=== PATIENT | female | born 1950 | race Caucasian/White ===

== ENCOUNTER 2021-05-08 09:39 | Emergency (ER) | payer MEDICARE, OTHER ==
[~2021-05-08] VITALS: Ht 160 cm; Wt 84.3 kg
[2021-05-08] MEDS ORDERED: RT-ALBUTEROL HFA 8.5 GM INHALER IH PRN (10:00)
[2021-05-08] MEDS ORDERED: NS IV 1000 ML 1,000 ML IV SCH (10:00)
[2021-05-08] MEDS ORDERED: NS IV 1000 ML 1,000 ML ONE (10:00)
--- NOTE | 2021-05-08 10:06 | ED General ---
General Chief Complaint: Respiratory Problems Stated Complaint: SOB; SORE THROAT Source of Information: Patient History of Present Illness Date Seen by Provider: May 08, 2021 Time Seen by Provider: 09:41 Initial Comments 70 yo female presenting with complaint of cough, shortness of breath and sore throat since yesterday. She has had a mild cough at night for last few days but everything got much worse yesterday. She denies fever, chills, nausea, vomiting, diarrhea, chest pain, headache, painful urination. She has not taken anything for her symptoms. She was feeling more short of breath this morning and her son, a gluer machine setup operator, evaluated her and recommended she come to ED. Associated Systoms: No Chest Pain; Cough; No Diaphoresis, No Fever/Chills, No Headaches, No Loss of Appetite, No Malaise, No Nausea/Vomiting, No Rash, No Seizure; Shortness of Air; No Syncope, No Weakness Allergies and Home Medications Allergies Coded Allergies: codeine (Verified Allergy, Unknown, 05/08/21) poison haresh extract (Verified Allergy, Unknown, 05/08/21) poison oak extract (Verified Allergy, Unknown, 05/08/21) poison sumac extract (Verified Allergy, Unknown, 05/08/21) Home Medications Prednisone 20 Mg Tab, 40 MG PO DAILY Prescribed by: MAHOGANY FRAGA on 05/08/21 1226 Patient Home Medication List Home Medication List Reviewed: Yes Review of Systems Review of Systems Constitutional: see HPI EENTM: nose congestion Respiratory: see HPI, cough Cardiovascular: No chest pain Gastrointestinal: no symptoms reported Genitourinary: no symptoms reported Musculoskeletal: no symptoms reported Skin: No rash Psychiatric/Neurological: No Symptoms Reported Physical Exam Vital Signs Vital Signs - First Documented 05/08/21 09:45 Temp 36.9 Pulse 94 Resp 23 B/P (MAP) 156/89 (111) Pulse Ox 99 O2 Delivery Room Air Capillary Refill : Height, Weight, BMI Height: '" Weight: lbs. oz. kg; BMI Method: General Appearance: WD/WN, Mild Distress (reports feeling short of breath) HEENT: PERRL/EOMI, Pharyngeal Erythema; No Tonsillar Exudate Neck: Full Range of Motion, Normal Inspection, Non Tender, Supple Respiratory: Chest Non Tender, No Accessory Muscle Use, No Respiratory Distress, Rhonci Cardiovascular: Regular Rate, Rhythm, Normal Peripheral Pulses Gastrointestinal: Normal Bowel Sounds, No Pulsatile Mass, Non Tender, Soft Rectal: Deferred Extremity: Normal Capillary Refill, Normal Inspection, No Pedal Edema Neurologic/Psychiatric: Alert, Oriented x3, No Motor/Sensory Deficits, Normal Mood/Affect, senior linux unix engineer II-XII Norm as Tested Skin: Normal Color, Warm/Dry Focused Exam Lactate Level 05/08/21 10:05: Lactic Acid Level 1.55 Lactic Acid Level Laboratory Tests Test 05/08/21 10:05 Lactic Acid Level 1.55 MMOL/L (0.50-2.00) Progress/Results/Core Measures Suspected Sepsis SIRS Temperature: Pulse: Respiratory Rate: Laboratory Tests 05/08/21 10:05: White Blood Count 6.4 Blood Pressure / Mean: 05/08/21 10:05: Lactic Acid Level 1.55 Laboratory Tests 05/08/21 10:05: Creatinine 0.85, INR Comment 0.9, Platelet Count 219, Total Bilirubin 0.3 Results/Orders Lab Results Laboratory Tests Test 05/08/21 10:05 05/08/21 10:15 Range/Units White Blood Count 6.4 4.3-11.0 10^3/uL Red Blood Count 4.27 3.80-5.11 10^6/uL Hemoglobin 12.4 11.5-16.0 g/dL Hematocrit 38 35-52 % Mean Corpuscular Volume 88 80-99 fL Mean Corpuscular Hemoglobin 29 25-34 pg Mean Corpuscular Hemoglobin Concent 33 32-36 g/dL Red Cell Distribution Width 13.1 10.0-14.5 % Platelet Count 219 130-400 10^3/uL Mean Platelet Volume 9.8 9.0-12.2 fL Immature Granulocyte % (Auto) 0 % Neutrophils (%) (Auto) 75 42-75 % Lymphocytes (%) (Auto) 14 12-44 % Monocytes (%) (Auto) 9 0-12 % Eosinophils (%) (Auto) 1 0-10 % Basophils (%) (Auto) 1 0-10 % Neutrophils # (Auto) 4.8 1.8-7.8 X 10^3 Lymphocytes # (Auto) 0.9 L 1.0-4.0 X 10^3 Monocytes # (Auto) 0.6 0.0-1.0 X 10^3 Eosinophils # (Auto) 0.1 0.0-0.3 10^3/uL Basophils # (Auto) 0.0 0.0-0.1 10^3/uL Immature Granulocyte # (Auto) 0.0 0.0-0.1 10^3/uL Prothrombin Time 12.7 12.2-14.7 SEC INR Comment 0.9 0.8-1.4 Activated Partial Thromboplast Time 30 24-35 SEC D-Dimer 1.19 H 0.00-0.49 UG/ML Sodium Level 136 135-145 MMOL/L Potassium Level 3.6 3.6-5.0 MMOL/L Chloride Level 99 98-107 MMOL/L Carbon Dioxide Level 27 21-32 MMOL/L Anion Gap 10 5-14 MMOL/L Blood Urea Nitrogen 12 7-18 MG/DL Creatinine 0.85 0.60-1.30 MG/DL Estimat Glomerular Filtration Rate 66 BUN/Creatinine Ratio 14 Glucose Level 125 H 70-105 MG/DL Lactic Acid Level 1.55 0.50-2.00 MMOL/L Calcium Level 9.1 8.5-10.1 MG/DL Corrected Calcium 8.8 8.5-10.1 MG/DL Total Bilirubin 0.3 0.1-1.0 MG/DL Aspartate Amino Transf (AST/SGOT) 22 5-34 U/L Alanine Aminotransferase (ALT/SGPT) 11 0-55 U/L Alkaline Phosphatase 96 40-136 U/L Troponin I < 0.30 <0.30 NG/ML C-Reactive Protein 0.52 H <0.50 MG/DL Total Protein 7.4 6.4-8.2 GM/DL Albumin 4.4 3.2-4.5 GM/DL Influenza Type A (RT-PCR) Not Detected Not Detecte Influenza Type B (RT-PCR) Not Detected Not Detecte SARS-CoV-2 RNA (RT-PCR) Not Detected Not Detecte Group A Streptococcus Screen NEGATIVE NEGATIVE My Orders Orders - MAHOGANY FRAGA MD Monitor-Rhythm Ecg Trace Only (05/08/21 09:55) Ed Iv/Invasive Line Start (05/08/21 09:55) Cbc With Automated Diff (05/08/21 09:55) Comprehensive Metabolic Panel (05/08/21 09:55) Crp Fs (05/08/21 09:55) Troponin I Fs (05/08/21 09:55) Protime With Inr (05/08/21 09:55) Partial Thromboplastin Time (05/08/21 09:55) Ns Iv 1000 Ml (Sodium Chloride 0.9%) (05/08/21 10:00) Blood Culture (05/08/21 09:55) Chest 1 View Ap/Pa Only (05/08/21 09:55) Covid 19 Inhouse Test (05/08/21 09:55) Lactic Acid Analyzer (05/08/21 09:55) Influenza A And B By Pcr (05/08/21 09:55) Dexamethasone Injection (Decadron Inje (05/08/21 10:00) Albuterol Inhaler (Albuterol) (05/08/21 10:00) Nursing Communication (Order) (05/08/21 10:00) Ns Iv 1000 Ml (Sodium Chloride 0.9%) (05/08/21 10:00) Fibrin Degradation Products (05/08/21 10:06) Rapid Strep A Screen (05/08/21 10:08) Ct Angio Chest W (05/08/21 11:08) Iohexol Injection (Omnipaque 350 Mg/Ml 1 (05/08/21 11:30) Received Contrast (Hold Metformin- Contr (05/08/21 11:30) Sodium Chloride Flush (Catheter Flush Sy (05/08/21 11:30) Ns (Ivpb) (Sodium Chloride 0.9% Ivpb Bag (05/08/21 11:30) Medications Given in ED Current Medications Medications Dose Ordered Sig/Raffi Route Start Time Stop Time Status Last Admin Dose Admin Albuterol Sulfate 2 PUFFS Q2H PRN IH 05/08/21 10:00 05/08/21 13:33 DC 05/08/21 10:12 8.5 GM Dexamethasone Sodium Phosphate 10 mg ONCE ONCE IV 05/08/21 10:00 05/08/21 10:01 DC 05/08/21 10:12 10 MG Iohexol 100 ml ONCE ONCE IV 05/08/21 11:30 05/08/21 11:38 DC 05/08/21 11:43 100 ML Sodium Chloride 10 ml NEEDED PRN IV 05/08/21 11:30 05/08/21 13:33 DC 05/08/21 11:43 10 ML Sodium Chloride 100 ml ONCE ONCE IV 05/08/21 11:30 05/08/21 11:38 DC 05/08/21 11:43 80 ML Vital Signs/I&O 05/08/21 05/08/21 09:45 13:33 Temp 36.9 Pulse 94 81 Resp 23 20 B/P (MAP) 156/89 (111) 148/65 Pulse Ox 99 97 O2 Delivery Room Air Room Air Capillary Refill : Progress Note #1: Progress Note check labs, blood cultures with lactic acid, chest xray, covid and flu swab. strep swab. Give IVF for hydration, Decadron for complaint of shortness of breath, Albuterol inhaler with spacer for rhonchi and soa. Progress Note #2: Time: 10:41 Progress Note CXR clear of acute process. Strep swab negative. CBC stable without acute significant abnormality. Chemistry without acute significant abnormality. Negative Troponin. CRP just slightly above normal at 0.52. Coags normal. Awaiting D dimer, Covid/Flu swab. Progress Note #3: Time: 11:22 Progress Note D-dimer was slightly elevated as well. Will add on CT angiogram of chest to evaluate for PE or obstruction. She does report that her breathing was improving with the treatment we have done so far of steroids and albuterol inhaler with spacer. Progress Note #4: Time: 12:[address] angiogram of chest negative for PE or acute process. Covid/Flu pending. Will discharge to home with quarantine recommendations and encourage follow up with clinic for continued concerns. Use inhaler with spacer to help with cough/soa. Steroid for a few days to treat for inflammation of lungs and breathing. Push fluids and rest. Will call with results of COVID/Flu swab. Progress Note #5: Progress Note prior to pt leaving department she did have Covid and Flu come back negative. Informed of results. Diagnostic Imaging Diagonstic Imaging: Xray Plain Films/CT/US/NM/MRI: chest Comments NAME: DOMINIQUE GRAHAM MED REC#: [id number] PT STATUS: REG ER : 1950 PHYSICIAN: MAHOGANY FRAGA MD ADMIT DATE: 05/08/21/ER FS Draft Date of Exam:05/08/21 CHEST 1 VIEW AP/PA ONLY INDICATION: Cough and shortness of breath. TECHNIQUE: Frontal chest obtained at 09:53 a.m. FINDINGS: Heart and mediastinal silhouette are normal in appearance. The lungs are clear. There is no pneumothorax or pleural fluid. IMPRESSION: Negative chest. Dictated on workstation # [id number] Dict: 05/08/21 1014 Trans: 05/08/21 1017 [id number] [id number] Interpreted by: ANITA MARTIN MD Electronically signed by: Reviewed: Reviewed by Me Diagonstic Imaging: CT Plain Films/CT/US/NM/MRI: chest Comments NAME: DOMINIQUE GRAHAM [facility] REC#: [id number] PT STATUS: REG ER : 1950 PHYSICIAN: MAHOGANY FRAGA MD ADMIT DATE: 05/08/21/ER FS Draft Date of Exam:05/08/21 CT ANGIO CHEST W PROCEDURE: CT angiography of the chest with contrast. TECHNIQUE: Multiple contiguous axial images were obtained through the chest after uneventful bolus administration of intravenous contrast. 3D reconstructed CTA MIP acquisitions were also performed. Auto Exposure Controls were utilized during the CT exam to meet ALARA standards for radiation dose reduction. INDICATION: COVID positive, shortness of breath and elevated d-dimer. No prior studies are available for comparison. Evaluation of the pulmonary arterial system is without evidence of thromboembolism. No definite filling defects are seen within central, lobar segmental branches. The thoracic aorta is normal caliber. There is no dissection. No pericardial or pleural fluid is identified. There is some minimal scarring or atelectasis in the left lower lobe. No infiltrates or evidence of pneumonia is identified. Upper abdomen is unremarkable. IMPRESSION: 1. No evidence of pulmonary embolism or thoracic aortic dissection. No acute features detected. Dictated on workstation # [id number] Dict: 05/08/21 1209 Trans: 05/08/21 1214 [place]ICO [id number] Interpreted by: REZA FIGUEREDO MD Electronically signed by: Reviewed: Reviewed by Me Departure Impression Primary Impression: Shortness of breath Additional Impressions: Cough Pharyngitis Qualified Codes: J02.9 - Acute pharyngitis, unspecified Disposition: 01 HOME, SELF-CARE Condition: Stable Departure-Patient Inst. Decision time for Depature: 12:23 Referrals: DAVIDA LUCERO DO (PCP/Family) Primary Care Physician Patient Instructions: COVID-19 Overview, Cough, Adult ED, How to Use Your Metered Dose Inhaler (Adults), How to Use a Spacer, Shortness of Breath, Adult ED, Sore Throat, Adult ED Add. Discharge Instructions: Quarantine until you get negative results or 10 days if have positive test. Will call with test results from today. Stay well hydrated and get plenty of rest. Use Inhaler with spacer to help with congestion/cough and shortness of breath. You would use Albuterol in haler 2 puffs every 4 hours as needed for shortness of breath/cough. Steroid for next few days to help with inflammation and cough. Mucinex would help with congestion and cough. You would be able to get this over the counter and take it to help with congestion and cough. All discharge instructions reviewed with patient and/or family. Voiced understanding. Scripts Prednisone (Prednisone) 20 Mg Tab 40 MG PO DAILY for cough/congestion for 3 Days, #6 TAB 0 Refills Prov: MAHOGANY FRAGA MD 05/08/21 MAHOGANY FRAGA MD May 08, 2021 10:06
--- NOTE | 2021-05-08 10:17 | Diagnostic Imaging Report ---
INDICATION: Cough and shortness of breath. TECHNIQUE: Frontal chest obtained at 09:53 a.m. FINDINGS: Heart and mediastinal silhouette are normal in appearance. The lungs are clear. There is no pneumothorax or pleural fluid. IMPRESSION: Negative chest. Dictated by: Dictated on workstation # [id number]
[2021-05-08 10:35] LABS: BUN/CREATININE RATIO 14; CARBON DIOXIDE 27 MMOL/L (21-32); CHLORIDE 99 MMOL/L (98-107); CREATININE SERUM 0.85 MG/DL (0.60-1.30); GFR ESTIMATED 66; GLUCOSE 125 MG/DL (70-105); POTASSIUM 3.6 MMOL/L (3.6-5.0); SODIUM 136 MMOL/L (135-145)
[2021-05-08 10:36] LABS: ALANINE AMINOTRANSFERASE 11 U/L (0-55); ALBUMIN 4.4 GM/DL (3.2-4.5); ALKALINE PHOSPHATASE 96 U/L (40-136); BILIRUBIN,TOTAL 0.3 MG/DL (0.1-1.0); CALCIUM 9.1 MG/DL (8.5-10.1); TOTAL PROTEIN 7.4 GM/DL (6.4-8.2)
[2021-05-08 10:37] LABS: BASOPHILS % (AUTO) 1 % (0-10); EOSINOPHILS # (AUTO) 0.1 10^3/uL (0.0-0.3); EOSINOPHILS % (AUTO) 1 % (0-10); HEMATOCRIT 38 % (35-52); HEMOGLOBIN 12.4 g/dL (11.5-16.0); LYMPHOCYTES # (AUTO) 0.9 X 10^3 (1.0-4.0); LYMPHOCYTES % (AUTO) 14 % (12-44); MEAN CORPUSCULAR HEMOGLOBIN 29 pg (25-34); MEAN CORPUSCULAR HGB CONC 33 g/dL (32-36); MEAN CORPUSCULAR VOLUME 88 fL (80-99); MEAN PLATELET VOLUME 9.8 fL (9.0-12.2); MONOCYTES # (AUTO) 0.6 X 10^3 (0.0-1.0); MONOCYTES % (AUTO) 9 % (0-12); NEUTROPHILS # (AUTO) 4.8 X 10^3 (1.8-7.8); NEUTROPHILS % (AUTO) 75 % (42-75); PLATELET COUNT 219 10^3/uL (130-400); WHITE BLOOD COUNT 6.4 10^3/uL (4.3-11.0)
[2021-05-08 10:38] LABS: INR 0.9 (0.8-1.4); PROTHROMBIN TIME PATIENT 12.7 SEC (12.2-14.7)
[2021-05-08] MEDS ORDERED: IOHEXOL 350 MG/ML 100 ML (OMNIPAQUE 350) VIAL IV ONE (11:30)
[2021-05-08] MEDS ORDERED: HOLD METFORMIN - RECEIVED CONTRAST 20 ML VIAL IV SCH (11:30)
[2021-05-08] MEDS ORDERED: NS 100 ML (IVPB) BAG IV ONE (11:30)
[2021-05-08] MEDS ORDERED: CATHETER FLUSH 10 ML SYR IV PRN (11:30)
--- NOTE | 2021-05-08 12:15 | Diagnostic Imaging Report ---
PROCEDURE: CT angiography of the chest with contrast. TECHNIQUE: Multiple contiguous axial images were obtained through the chest after uneventful bolus administration of intravenous contrast. 3D reconstructed CTA MIP acquisitions were also performed. Auto Exposure Controls were utilized during the CT exam to meet ALARA standards for radiation dose reduction. INDICATION: COVID positive, shortness of breath and elevated d-dimer. No prior studies are available for comparison. Evaluation of the pulmonary arterial system is without evidence of thromboembolism. No definite filling defects are seen within central, lobar segmental branches. The thoracic aorta is normal caliber. There is no dissection. No pericardial or pleural fluid is identified. There is some minimal scarring or atelectasis in the left lower lobe. No infiltrates or evidence of pneumonia is identified. Upper abdomen is unremarkable. IMPRESSION: 1. No evidence of pulmonary embolism or thoracic aortic dissection. No acute features detected. Dictated by: Dictated on workstation # [id number]
[2021-05-08] MEDS ORDERED: PRD20T PO (12:26)
[2021-05-08 13:33] VITALS: BP 148/65
== END 2021-05-08 13:33 | disposition home or self-care (01) ==
LOC: ER FS 09:46
DX: R06.02 Shortness of breath (principal); R05 Cough; J02.9 Acute pharyngitis, unspecified; Z20.822 Contact with and (suspected) exposure to COVID-19
CPT/HCPCS: 36415; 71045; 71275; 80053; 83605; 84484; 85025; 85379; 85610; 85730; 86141; 87040; 87430; 87636; 93041; 96361; 96374

== ENCOUNTER 2022-10-31 08:23 | Emergency (ER) | payer MEDICARE, OTHER ==
[~2022-10-31] VITALS: Ht 162.6 cm; Wt 92.1 kg
[~2022-10-31 08:23] MED LIST: PRD20T PO
--- NOTE | 2022-10-31 08:43 | ED Chest Pain ---
General Chief Complaint: Chest Pain Stated Complaint: CHEST PAIN Source: patient History of Present Illness Date Seen by Provider: Oct 31, 2022 Time Seen by Provider: 08:24 Initial Comments 72-year-old female presenting with complaints of approximately 90 minutes of right-sided aching pain in her chest. She states she was sitting down drinking coffee when the pain started. The pain is worse when she is sitting and gets better when she is up moving and walking. She has high cholesterol but was only recently started on medicine within the last month. Otherwise she denies any chronic longstanding medical problems. She had not taken anything for the pain. She states at its worst the pain was a 7 out of 10. Currently her pain is 0 on arrival to the emergency department. She states it gets better when she is up walking and moving in she had to walk and moved to get into the emergency department so the pain went away. She denies having symptoms like this previously. She has had some mild coughing. She denies fever, chills, nausea, vomiting, abdominal pain, shortness of breath. She states that she lives alone and was recently so she became anxious and nervous and wanted to be evaluated so she came to the emergency department. Timing/Duration: 1-3 hours (Approximately 90 minutes prior to arrival), gone now Severity/Quality: moderate (At its worst she rates it a 7 out of 10, but currently has 0 pain), aching Location: other (Right upper chest) Radiation: no radiation Activities at Onset: other (Sitting in a chair drinking coffee) Prior CP/Workup: no prior chest pain, no prior cardiac workup Modifying Factors: improves with movement (Getting up and moving makes the pain go away) ASA po SOC ANALYST: No NTG SL SOC ANALYST: No Associated Symptoms: No abdominal pain, No back pain, No diaphoresis, No dizziness, No edema, No fatigue, No fever/chills, No headache, No heartburn, No nausea/vomiting, No rash, No shortness of breath, No swelling/lump in chest, No syncope Allergies and Home Medications Allergies Coded Allergies: codeine (Verified Allergy, Unknown, 05/08/21) poison haresh extract (Verified Allergy, Unknown, 05/08/21) poison oak extract (Verified Allergy, Unknown, 05/08/21) poison sumac extract (Verified Allergy, Unknown, 05/08/21) Patient Home Medication List Home Medication List Reviewed: Yes Prednisone (Prednisone) 20 Mg Tab, 40 MG PO DAILY Prescribed by: MAHOGANY FRAGA on 05/08/21 1226 Review of Systems Review of Systems Constitutional: see HPI EENTM: No Symptoms Reported Respiratory: See HPI, Cough Cardiovascular: See HPI Gastrointestinal: See HPI Genitourinary: No Symptoms Reported Musculoskeletal: no symptoms reported Skin: No change in color, No rash Psychiatric/Neurological: Anxiety Past Dxumwdx-Wgkicw-Tfgxpy Hx Patient Social History Tobacco Use?: No Use of E-Cig and/or Vaping dev: No Substance use?: No Alcohol Use?: No Past Medical History Surgery/Hospitalization HX: Hypercholesterolemia, hysterectomy, cholecystectomy, Watson's cyst Physical Exam Vital Signs Vital Signs - First Documented 10/31/22 08:30 Temp 36.2 Pulse 86 Resp 19 B/P (MAP) 121/88 (99) Pulse Ox 97 O2 Delivery Room Air Capillary Refill : Height, Weight, BMI Height: '" Weight: lbs. oz. kg; 32.00 BMI Method: General Appearance: No Apparent Distress, Anxious HEENT: PERRL/EOMI, Pharynx Normal, Moist Mucous Membranes Neck: Full Range of Motion, Normal Inspection, Non Tender, Supple Respiratory: No Chest Non Tender (Mild tenderness to palpation of the right chest wall but patient states it feels different than the aching pain she has had in the last 90 minutes); Lungs Clear, Normal Breath Sounds, No Accessory Muscle Use, No Respiratory Distress Cardiovascular: Regular Rate, Rhythm, No Murmur, Normal Peripheral Pulses Gastrointestinal: Normal Bowel Sounds, No Pulsatile Mass, Non Tender, Soft Rectal: Deferred Extremity: Normal Capillary Refill, Normal Inspection, No Pedal Edema Neurologic/Psychiatric: Alert, Oriented x3, order entry administrator II-XII Norm as Tested Skin: Normal Color, Warm/Dry Progress/Results/Core Measures Results/Orders Lab Results Laboratory Tests Test 10/31/22 08:35 Range/Units White Blood Count 7.1 4.3-11.0 10^3/uL Red Blood Count 4.21 3.80-5.11 10^6/uL Hemoglobin 12.0 11.5-16.0 g/dL Hematocrit 36 35-52 % Mean Corpuscular Volume 86 80-99 fL Mean Corpuscular Hemoglobin 29 25-34 pg Mean Corpuscular Hemoglobin Concent 33 32-36 g/dL Red Cell Distribution Width 12.6 10.0-14.5 % Platelet Count 267 130-400 10^3/uL Mean Platelet Volume 9.6 9.0-12.2 fL Immature Granulocyte % (Auto) 0 % Neutrophils (%) (Auto) 62 42-75 % Lymphocytes (%) (Auto) 26 12-44 % Monocytes (%) (Auto) 9 0-12 % Eosinophils (%) (Auto) 3 0-10 % Basophils (%) (Auto) 0 0-10 % Neutrophils # (Auto) 4.4 1.8-7.8 10^3/uL Lymphocytes # (Auto) 1.8 1.0-4.0 10^3/uL Monocytes # (Auto) 0.6 0.0-1.0 10^3/uL Eosinophils # (Auto) 0.2 0.0-0.3 10^3/uL Basophils # (Auto) 0.0 0.0-0.1 10^3/uL Immature Granulocyte # (Auto) 0.0 0.0-0.1 10^3/uL Prothrombin Time 12.4 12.2-14.7 SEC INR Comment 0.9 0.8-1.4 Activated Partial Thromboplast Time 32 24-35 SEC Sodium Level 138 135-145 MMOL/L Potassium Level 4.1 3.6-5.0 MMOL/L Chloride Level 101 98-107 MMOL/L Carbon Dioxide Level 27 21-32 MMOL/L Anion Gap 10 5-14 MMOL/L Blood Urea Nitrogen 12 7-18 MG/DL Creatinine 0.77 0.60-1.30 MG/DL Estimat Glomerular Filtration Rate 82 BUN/Creatinine Ratio 16 Glucose Level 127 H 70-105 MG/DL Calcium Level 9.4 8.5-10.1 MG/DL Corrected Calcium 9.2 8.5-10.1 MG/DL Magnesium Level 1.8 1.6-2.4 MG/DL Total Bilirubin 0.4 0.1-1.0 MG/DL Aspartate Amino Transf (AST/SGOT) 30 5-34 U/L Alanine Aminotransferase (ALT/SGPT) 23 0-55 U/L Alkaline Phosphatase 108 40-136 U/L Troponin I < 0.30 <0.30 NG/ML Pro-B-Type Natriuretic Peptide 171.3 H <125.0 PG/ML Total Protein 7.7 6.4-8.2 GM/DL Albumin 4.2 3.2-4.5 GM/DL Lipase 29 8-78 U/L My Orders Orders - MAHOGANY FRAGA MD Cbc With Automated Diff (10/31/22 08:36) Magnesium (10/31/22 08:36) Chest 1 View Ap/Pa Only (10/31/22 08:36) Ekg Tracing (10/31/22 08:36) Comprehensive Metabolic Panel (10/31/22 08:36) Protime With Inr (10/31/22 08:36) Partial Thromboplastin Time (10/31/22 08:36) O2 (10/31/22 08:36) Monitor-Rhythm Ecg Trace Only (10/31/22 08:36) Ed Iv/Invasive Line Start (10/31/22 08:36) Lipase (10/31/22 08:36) Troponin I Fs (10/31/22 08:36) Probnp Fs (10/31/22 08:36) Vital Signs/I&O 10/31/22 10/31/22 08:30 09:35 Temp 36.2 Pulse 86 75 Resp 19 16 B/P (MAP) 121/88 (99) 167/75 Pulse Ox 97 97 O2 Delivery Room Air Room Air Progress Progress Note #1: Progress Note Potential life-threatening diagnosis of pneumonia, pneumothorax, pleural effusion, lung mass, hepatitis, esophageal spasm, GERD, myocardial infarction, aortic dissection. Place patient on cardiac telemetry monitoring to watch her rate and rhythm. My initial interpretation is that she has a sinus rhythm with a rate in the 80s. She does not show ectopy or ST elevation on the quality assurance monitor final. Obtain formal electrocardiogram to further look at her heart rate and rhythm and looking for signs of ischemia. Order chest x-ray to look at her lungs to see if there might be something structural causing her aching pain on the right. Obtain peripheral IV access and ordered blood for complete blood count, comprehensive metabolic profile, troponin and proBNP from a heart standpoint, lipase, magnesium. As she is currently not having any pain will defer any medications for now. Continue to watch on cardiac telemetry monitoring and advised patient to let us know if she had return of her pain and symptoms. Progress Note #2: Progress Note Blood count does not show elevated white blood cell count to indicate an infection. Her hemoglobin was low normal at 12 so was not indicating anemia. She had negative troponin at <0.3. Her metabolic profile was not showing electrolyte imbalance, renal failure, hepatic failure. ECG was not showing ST elevation or ischemia. Cardiac telemetry monitoring continues to show normal sinus rhythm with rate in 80s. My review of her 1 view chest xray does not show any acute process and appears similar to imaging from April 2021. She did have mild elevation of blood pressure while waiting in room and talking to family. She denies any recurrent pain or new symptoms. Progress Note #3: Progress Note 0928 I reviewed radiologist report that showed chronic appearing interstitial lung markings are increased but no infiltrate or effusion. Counseled patient that her heart test would not show any signs of heart damage or heart attack. Patient has not had any recurrent symptoms or pain while here in the ED. She remains in sinus rhythm on her monitor. Her blood work was negative for heart attack, renal failure, hepatic failure, electrolyte imbalance, high white count for infection, low hemoglobin for anemia. The chest x-ray was not showing any acute infiltrate or effusion and no signs of aortic abnormality to account for her right-sided chest pain. Reassured patient that this may be related to stomach or esophagus especially since he got better with getting up and moving and was worse with sitting down. Consider checking with her primary provider about additional evaluation and testing as needed. Return if having worsening or new symptoms or more concerns. Jxci-[id number]-[id number] consider trying acid wellness specialist to see if that might help prevent symptom recurrence. Also recommended to follow a bland low-fat diet Initial ECG Impression Date: Oct 31, 2022 Initial ECG Impression Time: 08:28 Initial ECG Rate: 90 Initial ECG Rhythm: Normal Sinus Initial ECG Comparisson: No Previous ECG Available Comment My initial review and interpretation shows normal sinus rhythm with a heart rate of 90 bpm. WI interval 152 ms. She has an incomplete right bundle branch block. She has no acute ST elevation. Her QT interval is 369 ms with a QTc interval 417 ms. There is no prior tracing available for comparison. Diagnostic Imaging Diagonstic Imaging: Xray Plain Films/CT/US/NM/MRI: chest Comments [facility] [facility] [place], [place] NAME: GLADYSDOMINIQUE [facility] REC#: [id number] PT STATUS: REG ER : 1950 PHYSICIAN: MAHOGANY FRAGA MD ADMIT DATE: 10/31/22/ER FS Draft Date of Exam:10/31/22 CHEST 1 VIEW AP/PA ONLY INDICATION: Cough Frontal chest obtained at 0849 a.m. and compared with 05/08/21. Heart and mediastinal silhouette are normal in appearance. There are chronic appearing increased interstitial markings. There is no acute consolidation or pneumothorax or pleural fluid. IMPRESSION: Mild chronic appearing increased interstitial markings with no acute infiltrate or pleural fluid. Dictated on workstation # [id number] Dict: 10/31/2214 Trans: 10/31/2224 [facility] [id number] Interpreted by: ANITA MARTIN MD Electronically signed by: Reviewed: Reviewed by Me Departure Impression Primary Impression: Intermittent right-sided chest pain Disposition: 01 HOME, SELF-CARE Condition: Stable Departure-Patient Inst. Decision time for Depature: 09:30 Referrals: DAVIDA LUCERO DO (PCP) Primary Care Physician Patient Instructions: Chest Pain, Adult ED, Chest Pain That Is Not Caused by the Heart (DC) Add. Discharge Instructions: Your heart tests and chest xray looked ok and did not show signs of heart damage or problems. There are several organs in the chest and upper abdomen that can cause pain on the right side of your chest and you may need additional testing with Dr. Lucero, but your tests here in the ER looked ok and did not show any worrisome, life threatening conditions. If having worsening symptoms, more problems or concerns you could always return for further evaluation. Check with Dr. Lucero's office and follow up with him for continued concerns and further testing as he deems necessary. In the meantime, in case this was a result of any irritation to the stomach or esophagus you could try following a soft bland diet until you can follow up with Dr. Lucero. All discharge instructions reviewed with patient and/or family. Voiced understanding. MAHOGANY FRAGA MD Oct 31, 2022 08:43
[2022-10-31 08:49] LABS: BASOPHILS % (AUTO) 0 % (0-10); EOSINOPHILS # (AUTO) 0.2 10^3/uL (0.0-0.3); EOSINOPHILS % (AUTO) 3 % (0-10); HEMATOCRIT 36 % (35-52); LYMPHOCYTES # (AUTO) 1.8 10^3/uL (1.0-4.0); LYMPHOCYTES % (AUTO) 26 % (12-44); MEAN CORPUSCULAR HEMOGLOBIN 29 pg (25-34); MEAN CORPUSCULAR HGB CONC 33 g/dL (32-36); MEAN CORPUSCULAR VOLUME 86 fL (80-99); MEAN PLATELET VOLUME 9.6 fL (9.0-12.2); MONOCYTES # (AUTO) 0.6 10^3/uL (0.0-1.0); MONOCYTES % (AUTO) 9 % (0-12); NEUTROPHILS # (AUTO) 4.4 10^3/uL (1.8-7.8); NEUTROPHILS % (AUTO) 62 % (42-75); PLATELET COUNT 267 10^3/uL (130-400); WHITE BLOOD COUNT 7.1 10^3/uL (4.3-11.0)
[2022-10-31 08:58] LABS: INR 0.9 (0.8-1.4); PROTHROMBIN TIME PATIENT 12.4 SEC (12.2-14.7)
[2022-10-31 09:02] LABS: ALBUMIN 4.2 GM/DL (3.2-4.5); BILIRUBIN,TOTAL 0.4 MG/DL (0.1-1.0); CALCIUM 9.4 MG/DL (8.5-10.1); CREATININE SERUM 0.77 MG/DL (0.60-1.30); MAGNESIUM 1.8 MG/DL (1.6-2.4); POTASSIUM 4.1 MMOL/L (3.6-5.0); TOTAL PROTEIN 7.7 GM/DL (6.4-8.2)
--- NOTE | 2022-10-31 09:24 | Diagnostic Imaging Report ---
INDICATION: Cough Frontal chest obtained at 0849 a.m. and compared with 05/08/21. Heart and mediastinal silhouette are normal in appearance. There are chronic appearing increased interstitial markings. There is no acute consolidation or pneumothorax or pleural fluid. IMPRESSION: Mild chronic appearing increased interstitial markings with no acute infiltrate or pleural fluid. Dictated by: Dictated on workstation # [id number]
[2022-10-31 09:35] VITALS: BP 167/75
== END 2022-10-31 09:36 | disposition home or self-care (01) ==
LOC: EDUNIT# 08:23 → ER FS 08:24
DX: R07.89 Other chest pain (principal)
CPT/HCPCS: 36415; 71045; 80053; 83690; 83735; 83880; 84484; 85025; 85610; 85730; 93005; 93041